=== PATIENT | male | born 1950 | race Two or more races ===

== ENCOUNTER 2019-05-31 18:27 | Outpatient (CLI) | payer OTHER | END 2019-05-31 18:33 | disposition home or self-care (01) | LOC: LAB 18:27 | DX: R97.20 Elevated prostate specific antigen [PSA] (principal) ==

== ENCOUNTER → 2019-07-07 | Outpatient (CLI) | payer OTHER | END | disposition home or self-care (01) | LOC: SONOGRAMA 07:46 | DX: R97.20 Elevated prostate specific antigen [PSA] (principal) ==

== ENCOUNTER 2019-08-03 07:55 | Outpatient (CLI) | payer OTHER | END 2019-08-03 08:06 | disposition home or self-care (01) | LOC: TOM 07:55 | DX: N40.0 Benign prostatic hyperplasia without lower urinary tract symptoms (principal); C61 Malignant neoplasm of prostate | CPT/HCPCS: 74178; Q9965 ==

== ENCOUNTER 2019-08-11 07:35 | Outpatient (CLI) | payer OTHER | END 2019-08-11 14:01 | disposition home or self-care (01) | LOC: NUCLEAR 07:35 | DX: I25.10 Atherosclerotic heart disease of native coronary artery without angina pectoris (principal); N40.0 Benign prostatic hyperplasia without lower urinary tract symptoms | CPT/HCPCS: 78452; 93017; A9500; J0153 ==

== ENCOUNTER 2019-08-17 08:32 | Outpatient (CLI) | payer OTHER | END 2019-08-17 13:05 | disposition home or self-care (01) | LOC: NUCLEAR 08:32 | DX: I65.23 Occlusion and stenosis of bilateral carotid arteries (principal); N40.0 Benign prostatic hyperplasia without lower urinary tract symptoms; C61 Malignant neoplasm of prostate | CPT/HCPCS: 78803; 93880; A9503 ==

== ENCOUNTER 2019-11-22 08:48 | Inpatient (IN) | payer OTHER ==
[2019-11-22] MEDS ORDERED: NEUPRO1 EAC1 (09:57)
[2019-11-22] MEDS ORDERED: COZAAR50 MG PO (09:58)
[2019-11-22] MEDS ORDERED: STALEVO 200 TA1 EACH PO (09:58)
[2019-11-22] MEDS ORDERED: [UNRECOGNIZED DRUG - OTHER] PO (10:00)
[2019-11-22] MEDS ORDERED: GABAPENTIN400 MG PO (10:00)
[2019-11-22] MEDS ORDERED: [UNRECOGNIZED DRUG - OTHER] PO (10:01)
[2019-11-22] MEDS ORDERED: CITALOPRAM HBR20 MG PO (10:02)
[2019-11-22] MEDS ORDERED: LASIX20 MG PO (10:02)
[2019-11-22] MEDS ORDERED: ZANAFLEX4 M1 PO (10:04)
[2019-11-22] MEDS ORDERED: CLONAZEPAM0.5 MG PO (10:04)
[2019-11-22] MEDS ORDERED: NEUPRO (10:05)
[2019-11-22] MEDS ORDERED: RELAFEN PO (10:06)
== END 2019-11-27 14:31 | disposition home or self-care (01) | DRG 707 ==
LOC: ADM 11:00 → CIR.AMB 11-25 07:00 → O/R 11-25 08:20 → SURG 11-25 08:20 → RECOVERY 11-25 11:00 → CIR.AMB 11-25 11:00 → EDSTATUS 11-25 11:00 → SURG 11-25 18:44
PROVIDERS: ADMIT Urology; ATTEND Urology
PROC: 0VT00ZZ Resection of Prostate, Open Approach (ICD-10-PCS; principal; 2019-11-25 07:00)
DX: C61 Malignant neoplasm of prostate (principal); C77.5 Secondary and unspecified malignant neoplasm of intrapelvic lymph nodes; I10 Essential (primary) hypertension; G20 Parkinson's disease